=== PATIENT | female | born 1980 | race Caucasian/White ===

== ENCOUNTER 2017-05-02 05:07 | Emergency (ER) | payer OTHER ==
[2017-05-02] MEDS ORDERED: KETOROLAC 60 MG/2 ML VIAL IM STA (05:27)
[2017-05-02] MEDS ORDERED: ONDANSETRON ODT 4 MG TAB PO STA (05:27)
--- NOTE | 2017-05-02 05:30 | ED ---
General Adult HPI - General Chief complaint: Neck Pain/Injury Stated complaint: Pain Time Seen by Provider: 05/02/17 05:09 Source: patient, EMS, RN notes reviewed Mode of arrival: EMS Limitations: no limitations - History of Present Illness Initial comments: Patient is a pleasant 37-year-old female presenting to the emergency Department with fibromyalgia pain. Patient has been dealing with this for quite a while. Patient has been under some increased stress recently and feels that is making her symptoms worse. Patient has had a headache for the past day or so. Patient does have chronic headaches, chronic migraines. This is similar to that. Patient has had Toradol previously and does request this. Patient states her anxiety level has been high recently. - Related Data Home Medications Medication Instructions Recorded Confirmed Montelukast [Singulair] 10 mg PO DAILY 03/14/16 05/09/16 [id number] Acid 1 cap PO DAILY 03/14/16 05/09/16 [-U Capsule] Allergies Allergy/AdvReac Type Severity Reaction Status Date / Time No Known Allergies Allergy Verified 05/02/17 05:08 Review of Systems ROS Statement: Those systems with pertinent positive or pertinent negative responses have been documented in the HPI. ROS Other: All systems not noted in ROS Statement are negative. Constitutional: Denies: fever Eyes: Denies: eye pain ENT: Denies: ear pain Respiratory: Denies: dyspnea Cardiovascular: Denies: chest pain Endocrine: Reports: fatigue Gastrointestinal: Reports: nausea Genitourinary: Denies: dysuria Musculoskeletal: Reports: back pain Skin: Denies: rash Neurological: Reports: headache Psychiatric: Reports: anxiety Past Medical History Past Medical History: Asthma, Fibromyalgia History of Any Multi-Drug Resistant Organisms: None Reported Past Surgical History: No Surgical Hx Reported Past Anesthesia/Blood Transfusion Reactions: No Reported Reaction Past Psychological History: Anxiety, Depression Smoking Status: Never smoker General Exam Limitations: no limitations General appearance: alert, in no apparent distress Head exam: Present: atraumatic Eye exam: Present: normal appearance, PERRL ENT exam: Present: normal oropharynx Neck exam: Present: tenderness (Diffuse tenderness), full ROM Respiratory exam: Present: normal lung sounds bilaterally Cardiovascular Exam: Present: regular rate, normal rhythm GI/Abdominal exam: Present: soft. Absent: tenderness Extremities exam: Absent: pedal edema Back exam: Present: tenderness (Diffuse tenderness more of the upper back) Neurological exam: Present: alert, oriented X3, CN II-XII intact. Absent: motor sensory deficit Expanded Motor strength exam: RUE: 5, LUE: 5, RLE: 5, LLE: 5 Psychiatric exam: Present: normal mood Skin exam: Present: normal color Course Vital Signs 05/02/17 05:08 Temperature 98 F Pulse Rate 89 Respiratory 18 Rate Blood Pressure 142/70 O2 Sat by Pulse 98 Oximetry Disposition Clinical Impression: Cephalgia Disposition: HOME SELF-CARE Condition: Stable Instructions: Acute Headache (ED), Chronic Pain (ED) Additional Instructions: Please follow-up with your doctor tomorrow. Return for weakness, confusion, worsening or change in symptoms or fever or other concerns. Referrals: Africa Olsen MD [Primary Care Provider] - 1-2 days Time of Disposition: 05:30
[2017-05-02 05:37] VITALS: BP 127/78; PULSE 68; RESP 16; TEMP 97.6
== END 2017-05-02 05:30 | disposition home or self-care (01) ==
LOC: EC 05:07
DX: R51 Headache (principal); Z79.899 Other long term (current) drug therapy
CPT/HCPCS: 99283; 96372; J1885

== ENCOUNTER 2018-02-04 17:38 | Emergency (ER) | payer OTHER ==
[2018-02-04 17:49] VITALS: RESP 16; TEMP 97.8
[2018-02-04] MEDS ORDERED: RX INFO: IV CONTRAST WAS GIVEN 1 EACH MISC MISCELLANE PRN (17:56)
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
[2018-02-04 19:12] VITALS: BP 138/82; PULSE 71
[2018-02-04] MEDS ORDERED: ORPHENADRINE 30 MG/ML 2 ML VIAL IVP STA (19:32)
[2018-02-04] MEDS ORDERED: KETOROLAC 30 MG/ML 1 ML VIAL IVP STA (19:32)
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
== END 2018-02-04 20:16 | disposition home or self-care (01) ==
LOC: EC 17:38
DX: S16.1XXA Strain of muscle, fascia and tendon at neck level, initial encounter (principal); M62.838 Other muscle spasm; J45.909 Unspecified asthma, uncomplicated; Z79.899 Other long term (current) drug therapy; Y04.8XXA Assault by other bodily force, initial encounter; Y92.009 Unspecified place in unspecified non-institutional (private) residence as the place of occurrence of the external cause
CPT/HCPCS: 96374; 96375; 99284; 70496; 70498; J2360; J1885; Q9967

== ENCOUNTER 2018-06-01 17:21 | Emergency (ER) | payer OTHER ==
[2018-06-01 18:04] VITALS: BP 112/76; PULSE 66; RESP 18; TEMP 98
[2018-06-01 18:24] LABS: Appearance,Urine Cloudy (Clear); Bacteria,Urine Rare /hpf; Bilirubin,Urine Negative (Negative); Blood,Urine Negative (Negative); Color,Urine Yellow; Glucose,Urine (UA) Negative (Negative); Ketones,Urine Negative (Negative); Leukocyte Esterase,Urine Negative (Negative); Mucus,Urine Few /hpf; Nitrite,Urine Negative (Negative); Protein,Urine Negative (Negative); RBC,Urine 7 /hpf (0-5); Specific Gravity,Urine 1.018 (1.001-1.035); Squamous Epithelial Cell,Urine 4 /hpf (0-4); Urobilinogen,Urine <2.0 mg/dL (<2.0)
[2018-06-01] MEDS ORDERED: PHENAZOPYRIDINE 200 MG TAB PO STA (20:30)
[2018-06-01] MEDS ORDERED: ONDANSETRON ODT 4 MG TAB PO STA (20:30)
[2018-06-01] MEDS ORDERED: NITROFURANTOIN MONOHYD/M-CRYST 100 MG CAP PO STA (20:30)
--- NOTE | 2018-06-01 20:31 | ED ---
General Adult HPI - General Chief complaint: Urogenital Stated complaint: UTI Time Seen by Provider: 06/01/18 20:14 Source: patient, RN notes reviewed, old records reviewed Mode of arrival: ambulatory Limitations: no limitations - History of Present Illness Initial comments: This is a 38-year-old female the ER today. Patient resents ER for evaluation of significant burning with urination epigastric or periumbilical or suprapubic abdominal pain. No back pain, no fevers mild nausea. Burning with urination and urgency incontinence. Patient states she's had multiple UTIs and this feels the same, denies current sexual activity - Related Data Home Medications Medication Instructions Recorded Confirmed Montelukast [Singulair] 10 mg PO DAILY 03/14/16 06/01/18 Norgestimate-Ethinyl Estradiol 1 tab PO DAILY 02/04/18 06/01/18 [Ortho Tri-Cyclen 28 Tablet] Omeprazole [PriLOSEC] 20 mg PO AC-BRKFST 06/01/18 06/01/18 Previous Rx's Medication Instructions Recorded Nitrofurantoin Monohyd/M-Cryst 100 mg PO Q12HR #28 cap 06/01/18 [Macrobid] Ondansetron Odt [Zofran ODT] 4 mg PO Q8HR PRN #30 tab 06/01/18 Phenazopyridine [Pyridium] 200 mg PO TID #6 tablet 06/01/18 Allergies Allergy/AdvReac Type Severity Reaction Status Date / Time No Known Allergies Allergy Verified 06/01/18 20:22 Review of Systems ROS Statement: Those systems with pertinent positive or pertinent negative responses have been documented in the HPI. ROS Other: All systems not noted in ROS Statement are negative. Past Medical History Past Medical History: Asthma, Fibromyalgia History of Any Multi-Drug Resistant Organisms: None Reported Past Surgical History: No Surgical Hx Reported Past Anesthesia/Blood Transfusion Reactions: No Reported Reaction Past Psychological History: Anxiety, Depression Smoking Status: Never smoker Past Alcohol Use History: None Reported Past Drug Use History: Marijuana General Exam Limitations: no limitations General appearance: alert, in no apparent distress Head exam: Present: atraumatic, normocephalic, normal inspection Eye exam: Present: normal appearance, PERRL, EOMI. Absent: scleral icterus, conjunctival injection, periorbital swelling ENT exam: Present: normal exam, mucous membranes moist Neck exam: Present: normal inspection. Absent: tenderness, meningismus, lymphadenopathy Respiratory exam: Present: normal lung sounds bilaterally. Absent: respiratory distress, wheezes, rales, rhonchi, stridor Cardiovascular Exam: Present: regular rate, normal rhythm, normal heart sounds. Absent: systolic murmur, diastolic murmur, rubs, gallop, clicks GI/Abdominal exam: Present: soft, normal bowel sounds. Absent: distended, tenderness, guarding, rebound, rigid Extremities exam: Present: normal inspection, full ROM, normal capillary refill. Absent: tenderness, pedal edema, joint swelling, calf tenderness Back exam: Present: normal inspection Neurological exam: Present: alert, oriented X3, CN II-XII intact Psychiatric exam: Present: normal affect, normal mood Skin exam: Present: warm, dry, intact, normal color. Absent: rash Course Vital Signs 06/01/18 18:01 Temperature 98 F Pulse Rate 66 Respiratory 18 Rate Blood Pressure 112/76 O2 Sat by Pulse 98 Oximetry - Reevaluation(s) Reevaluation #1: 06/01/18 20:32 Patient tolerating oral pills without difficulty Medical Decision Making - Medical Decision Making 38 female the ER positive UTI, patient can be discharged home - Lab Data Lab Results 06/01/18 Range/Units 18:04 Urine Color Yellow Urine Appearance Cloudy H (Clear) Urine pH 6.0 (5.0-8.0) Ur Specific [place] 1.018 (1.001-1.035) Urine Protein Negative (Negative) Urine Glucose (UA) Negative (Negative) Urine Ketones Negative (Negative) Urine Blood Negative (Negative) Urine Nitrite Negative (Negative) Urine Bilirubin Negative (Negative) Urine Urobilinogen <2.0 (<2.0) mg/dL Ur Leukocyte Esterase Negative (Negative) Urine RBC 7 H (0-5) /hpf Ur Squamous Epith Cells 4 (0-4) /hpf Urine Bacteria Rare H (None) /hpf Urine Mucus Few H (None) /hpf Disposition Clinical Impression: Urinary tract infection Disposition: HOME SELF-CARE Condition: Good Instructions: Urinary Tract Infection in Women (ED) Prescriptions: Nitrofurantoin Monohyd/M-Cryst [Macrobid] 100 mg PO Q12HR #28 cap Ondansetron Odt [Zofran ODT] 4 mg PO Q8HR PRN #30 tab PRN Reason: nausea/vomiting Phenazopyridine [Pyridium] 200 mg PO TID #6 tablet Is patient prescribed a controlled substance at d/c from ED?: No Referrals: Africa Olsen MD [Primary Care Provider] - 1-2 days
== END 2018-06-01 20:49 | disposition home or self-care (01) ==
LOC: EC 17:21
DX: N39.0 Urinary tract infection, site not specified (principal); J45.909 Unspecified asthma, uncomplicated; Z79.3 Long term (current) use of hormonal contraceptives; Z79.899 Other long term (current) drug therapy
CPT/HCPCS: 81001; 87086; 99284

== ENCOUNTER 2019-07-11 12:55 | Emergency (ER) | payer OTHER ==
[2019-07-11 12:59] VITALS: TEMP 98.2
[2019-07-11 13:39] LABS: Appearance,Urine Cloudy (Clear); Bacteria,Urine Rare /hpf; Bilirubin,Urine Negative (Negative); Blood,Urine Negative (Negative); Color,Urine Yellow; Glucose,Urine (UA) Negative (Negative); Ketones,Urine Negative (Negative); Leukocyte Esterase,Urine Large (Negative); Mucus,Urine Rare /hpf; Nitrite,Urine Negative (Negative); PH, Urine 6.5 (5.0-8.0); Protein,Urine Negative (Negative); RBC,Urine 2 /hpf (0-5); Specific Gravity,Urine 1.012 (1.001-1.035); Squamous Epithelial Cell,Urine 5 /hpf (0-4); Urobilinogen,Urine <2.0 mg/dL (<2.0)
[2019-07-11] MEDS ORDERED: cefTRIAXone 250 MG VIAL IM STA (14:26)
[2019-07-11] MEDS ORDERED: AZITHROMYCIN 500 MG TAB PO STA (14:26)
--- NOTE | 2019-07-11 14:27 | ED ---
Female Urogenital HPI - General Chief complaint: Urogenital Stated complaint: poss UTI Time Seen by Provider: 07/11/19 13:33 Source: patient Mode of arrival: ambulatory Limitations: no limitations - History of Present Illness Initial comments: 39 yo female presenting today for chief complaint of possible urinary tract infection. Patient states she feels she has a UTI. Patient states she has urgency frequency and has pressure in the bladder. Patient denies any abdominal pain patient states it feels like when she had a UTI in the past. Patient stat es she is unsure if her partner is faithful and this is why she would be concerned for any STDs, patient denies any significant vaginal discharge vaginal orders or pain with sex. Patient denies any fever or flulike symptoms. Patient denies any flank pain. Patient states the pain in the lower pelvic region does radiate a little bit to the back bilaterally. Remaining review of system negative. Patient denies any hematuria or vomiting. Patient denies . Last Menstrual Period: 06/11/19 - Related Data Home Medications Medication Instructions Recorded Confirmed Montelukast [Singulair] 10 mg PO DAILY 03/14/16 06/01/18 Norgestimate-Ethinyl Estradiol 1 tab PO DAILY 02/04/18 06/01/18 [Ortho Tri-Cyclen 28 Tablet] Omeprazole [PriLOSEC] 20 mg PO AC-BRKFST 06/01/18 06/01/18 Previous Rx's Medication Instructions Recorded Nitrofurantoin Monohyd/M-Cryst 100 mg PO Q12HR #28 cap 06/01/18 [Macrobid] Ondansetron Odt [Zofran ODT] 4 mg PO Q8HR PRN #30 tab 06/01/18 Phenazopyridine [Pyridium] 200 mg PO TID #6 tablet 06/01/18 Cephalexin [Keflex] 500 mg PO Q12HR 5 Days #10 cap 07/11/19 Allergies Allergy/AdvReac Type Severity Reaction Status Date / Time No Known Allergies Allergy Verified 07/11/19 12:59 Review of Systems ROS Statement: Those systems with pertinent positive or pertinent negative responses have been documented in the HPI. ROS Other: All systems not noted in ROS Statement are negative. Past Medical History Past Medical History: Asthma, Fibromyalgia History of Any Multi-Drug Resistant Organisms: None Reported Past Surgical History: No Surgical Hx Reported Past Anesthesia/Blood Transfusion Reactions: No Reported Reaction Past Psychological History: Anxiety, Depression Smoking Status: Never smoker Past Alcohol Use History: None Reported Past Drug Use History: Marijuana General Exam - General Exam Comments Initial Comments: General: The patient is awake and alert, in no distress, and does not appear acutely ill. Eye: Pupils are equal, round and reactive to light, extra-ocular movements are intact. No nystagmus. There is normal conjunctiva bilaterally. No signs of icterus. Cardiovascular: There is a regular rate and rhythm. No murmur, rub or gallop is appreciated. Respiratory: Lungs are clear to auscultation, respirations are non-labored, breath sounds are equal. No wheezes, stridor, rales, or rhonchi. Gastrointestinal: Soft, non-distended, non-tender abdomen without masses or organomegaly noted. There is no rebound or guarding present. No CVA tenderness. Bowel sounds are unremarkable. Pelvic examination revealed no external lesions. [place] oral rugated vaginal mucosa. Scant amount discharge in vault. No vaginal bleeding. Cervical os closed. No adnexal cervical motion or chandelier sign. Musculoskeletal: Normal ROM, no tenderness. Strength 5/5. Sensation intact. Pulses equal bilaterally 2+. Neurological: A&O x 3. CN II-XII intact, There are no obvious motor or sensory deficits. Coordination appears grossly intact. Speech is normal. Skin: Skin is warm and dry and no rashes or lesions are noted. Psychiatric: Cooperative, appropriate mood & affect, normal judgment. Limitations: no limitations Course Vital Signs 07/11/19 07/11/19 12:57 14:49 Temperature 98.2 F Pulse Rate 74 70 Respiratory 20 15 Rate Blood Pressure 132/86 130/84 O2 Sat by Pulse 98 98 Oximetry Medical Decision Making - Medical Decision Making 39-year-old female presenting for possible urinary tract infection. Patient states she is concerned that her mother is unfaithful. Patient be treated prophylactically for STDs. There is no overt signs of ST eyes on pelvic examination. No cervical motion or adnexal tenderness. Patient states it does feel like when she had a urinary tract infection the past. Patient does have significant leukocyte esterase. No nitrates. No smoking hematuria. Patient will be treated with Keflex. No signs concerning for pyelonephritis at this time. Patient is afebrile. Nontoxic no vomiting or CVA tenderness. Trichomonas returned negative. Patient is given ceftriaxone and azithromycin. Patient return parameters were discussed as well as the importance of follow-up to [employer]. Patient will be discharged patient is agreeable to this care plan - Lab Data Lab Results 07/11/19 07/11/19 07/11/19 Range/Units 12:59 12:59 14:35 Urine Color Yellow Urine Appearance Cloudy H (Clear) Urine pH 6.5 (5.0-8.0) Ur Specific [place] 1.012 (1.001-1.035) Urine Protein Negative (Negative) Urine Glucose (UA) Negative (Negative) Urine Ketones Negative (Negative) Urine Blood Negative (Negative) Urine Nitrite Negative (Negative) Urine Bilirubin Negative (Negative) Urine Urobilinogen <2.0 (<2.0) mg/dL Ur Leukocyte Esterase Large H (Negative) Urine RBC 2 (0-5) /hpf Urine WBC 5 (0-5) /hpf Ur Squamous Epith Cells 5 H (0-4) /hpf Urine Bacteria Rare H (None) /hpf Urine Mucus Rare H (None) /hpf Urine HCG, Qual Not Detected (Not Detectd) Trichomonas Ag (Rapid) Negative (Negative) Disposition Clinical Impression: UTI (urinary tract infection) Disposition: HOME SELF-CARE Condition: Good Instructions (If sedation given, give patient instructions): Urinary Tract Infection in Women (ED) Additional Instructions: Please use medication as discussed. Please follow-up with family doctor in the next 2 days of symptoms have not improved. Please return to emergency room if the symptoms increase or worsen or for any other concerns. No concern for STDs at this time will call if there are any positive results. Prescriptions: Cephalexin [Keflex] 500 mg PO Q12HR 5 Days #10 cap Is patient prescribed a controlled substance at d/c from ED?: No Referrals: Africa Olsen MD [Primary Care Provider] - 1-2 days Time of Disposition: 14:27
[2019-07-11 14:50] VITALS: BP 130/84; PULSE 70; RESP 15
[2019-07-12 14:31] LABS: C. trachomatis,PCR Negative (Neg,Equiv); Chlamydia trachomatis Source Vagina
[2019-07-12 14:44] LABS: N. gonorrhoeae,PCR Negative (Neg,Equiv); Neisseria Source Vagina
== END 2019-07-11 14:49 | disposition home or self-care (01) ==
LOC: EC 12:55
DX: N39.0 Urinary tract infection, site not specified (principal); Z79.3 Long term (current) use of hormonal contraceptives
CPT/HCPCS: 81001; 81025; 87808; 87491; 87591; 87070; 96372; 99283; J0696